=== PATIENT | female | born 1970 | race Hispanic/Latino ===

== ENCOUNTER 2024-06-10 21:37 | Emergency (ER) | payer OTHER ==
[~2024-06-10] VITALS: Ht 157.5 cm; Wt 65.0 kg
[2024-06-10] MEDS ORDERED: DEXAMETHASONE SOD PHOS 10 MG/ML VIAL IM ONE (22:30)
[2024-06-10 23:00] VITALS: BP 113/57
== END 2024-06-10 23:00 | disposition home or self-care (01) ==
LOC: ED 21:37
DX: M75.51 Bursitis of right shoulder (principal); I10 Essential (primary) hypertension
CPT/HCPCS: 71045; 73030; 96372; 99284-25; J1100

== ENCOUNTER 2025-02-04 13:54 | Emergency (ER) | payer OTHER ==
[~2025-02-04] VITALS: Ht 157.5 cm; Wt 64.0 kg
[2025-02-04] MEDS ORDERED: PREDNISONE20 MG PO (14:43)
[2025-02-04] MEDS ORDERED: MECLIZINE HCL25 MG PO (14:43)
[2025-02-04 15:00] LABS: BASOPHILS 0.3 % (0.1-1.2); EOSINOPHILS 3.5 % (0.7-5.8); LYMPHOCYTES 36.4 % (19.3-51.7); MCH 31.5 PG (25.6-32.2); MCHC 34.4 g/dL (32.2-35.5); MCV 91.5 fL (79.4-94.8); MONOCYTES 6.3 % (4.7-12.5); NEUTROPHILS 53.2 % (34.0-71.1); RBC 4.70 M/uL (3.93-5.22)
[2025-02-04 15:33] LABS: ALT (SGPT) 27.0 U/L (14-59); AST (SGOT) 17.0 U/L (15-37); GLOMERULAR FILTRATION RATE,EST 114.0 mL/min (>60); PROTEIN, TOTAL 7.7 g/dL (6.4-8.2); UREA NITROGEN 15.0 mg/dL (7-18)
[2025-02-04] MEDS ORDERED: AMOXICILLIN/CLAVULANATE K 875 MG HOME.PACK PO ONE (18:00)
[2025-02-04 19:05] VITALS: BP 144/78
[2025-02-04] MEDS ORDERED: AMOX TR-K CLV1 EAC1 PO (19:12)
--- NOTE | 2025-02-06 21:55 | EKG ---
[facility] [address] [facility] [place] [address] Signed Normal sinus rhythm Normal ECG No previous ECGs available Confirmed by Abhilash Aldridge MD () on 02/06/2025 9:55:41 PM Electronically Signed By: ABHILASH ALDRIDGE MD 02/06/252154 PATIENT NAME: ARIADNA NATHKEVINBECCA Electrocardiogram DATE OF : 70 PHYSICIAN: ABHILASH ALDRIDGE MD REPORT #: [id number] REPORT IS CONFIDENTIAL AND NOT TO BE RELEASED WITHOUT AUTHORIZATION
== END 2025-02-04 18:53 | disposition home or self-care (01) ==
LOC: ED 13:54
PROVIDERS: Emergency Medicine
DX: H66.91 Otitis media, unspecified, right ear (principal); R42 Dizziness and giddiness; I10 Essential (primary) hypertension; Z79.52 Long term (current) use of systemic steroids
CPT/HCPCS: 36415; 70450; 80053; 83880; 84484; 85025; 93005; 93010; 99284-25

== ENCOUNTER 2025-02-25 18:45 | Emergency (ER) | payer OTHER ==
[~2025-02-25] VITALS: Ht 157.5 cm; Wt 65.2 kg
[~2025-02-25 18:45] MED LIST: AMOX TR-K CLV1 EAC1 PO; MECLIZINE HCL25 MG PO; PREDNISONE20 MG PO
--- OUTSIDE RECORDS SUMMARY | 2025-02-25 18:52 | XMS ---
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 Karlie has no Care Guidelines for this patient. [facility] MO.) [facility] NOTE: Visits indicate total known visits. 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
[2025-02-25 19:29] LABS: BASOPHILS 0.3 % (0.1-1.2); EOSINOPHILS 3.3 % (0.7-5.8); LYMPHOCYTES 32.8 % (19.3-51.7); MCH 31.3 PG (25.6-32.2); MCHC 34.7 g/dL (32.2-35.5); MCV 90.3 fL (79.4-94.8); MONOCYTES 6.4 % (4.7-12.5); NEUTROPHILS 56.8 % (34.0-71.1); RBC 4.66 M/uL (3.93-5.22)
[2025-02-25] MEDS ORDERED: LACTATED RINGER'S 1,000 ML IV ONE (19:30)
[2025-02-25 19:47] LABS: ALT (SGPT) 26.0 U/L (14-59); AST (SGOT) 18.0 U/L (15-37); GLOMERULAR FILTRATION RATE,EST 111.0 mL/min (>60); PROTEIN, TOTAL 8.4 g/dL (6.4-8.2); TSH, 3RD GENERATION 2.295 uIU/mL (0.358-3.740); UREA NITROGEN 17.0 mg/dL (7-18)
[2025-02-25 20:26] LABS: BLOOD/HGB, URINE SMALL (Negative); KETONE, URINE NEGATIVE (Negative); LEUK ESTERASE, URINE NEGATIVE (negative); NITRITE, URINE NEGATIVE (negative)
[2025-02-25 20:38] LABS: EPITHELIAL CELLS, URINE SQUAMOUS 1+ /lpf (0-1+)
[2025-02-25 20:39] LABS: BACTERIA, URINE 2+ /hpf (negative); CRYSTALS, URINE AMORPHOUS PHOSPH 1+ (0-1+)
[2025-02-25 20:40] LABS: CASTS, URINE NONE SEEN \\lpf; REFLEX CULTURE, URINE Yes (No)
[2025-02-25] MEDS ORDERED: NITROFURANTOIN MONOHYD MACROCR 100 MG HOME.PACK PO ONE (21:30)
[2025-02-25] MEDS ORDERED: NITROFURANTOIN MONOHYD MACROCR 100 MG CAP PO ONE (21:30)
[2025-02-25] MEDS ORDERED: MACROBID 100 M100 MG PO (21:31)
--- NOTE | 2025-02-27 16:10 | EKG ---
[facility] [address] [facility] [place], [place] [address] Signed Normal sinus rhythm Normal ECG Confirmed by Veronique Paredes DO ([id number]) on 02/27/2025 4:10:29 PM Electronically Signed By: VERONIQUE PAREDES DO 02/27/25 1610 PATIENT NAME: PHILLIP WATTS Electrocardiogram DATE OF : 70 PHYSICIAN: VERONIQUE PAREDES DO REPORT #: [id number] REPORT IS CONFIDENTIAL AND NOT TO BE RELEASED WITHOUT AUTHORIZATION
== END 2025-02-25 22:00 | disposition home or self-care (01) ==
LOC: ED 18:45
PROVIDERS: Internal Medicine
DX: R42 Dizziness and giddiness (principal); N39.0 Urinary tract infection, site not specified; I10 Essential (primary) hypertension
CPT/HCPCS: 36415; 70450; 70496; 70498; 80053; 81001; 83735; 84443; 85025; 87077; 87088; 87186; 93005; 93010; 96374; 99284-25; J2405; J7121; Q9967